=== PATIENT | male | born 1985 | race Caucasian/White ===

== ENCOUNTER 2022-07-16 12:08 | Inpatient (IN) | payer OTHER ==
[2022-07-16 14:39] VITALS: BMI 27.8
[2022-07-16] MEDS ORDERED: BISMUTH SUBSALICYLATE 524 MG/30 ML PO PRN (15:41)
[2022-07-16] MEDS ORDERED: hydrOXYzine PAMOATE 25 MG CAPSULE (FP) PO PRN (15:41)
[2022-07-16] MEDS ORDERED: IBUPROFEN 600 MG TABLET (FP) PO PRN (15:41)
[2022-07-16] MEDS ORDERED: MAGNESIUM HYDROX 2400MG/30ML ORAL SUSPENSION 30 ML CUP PO PRN (15:41)
[2022-07-16] MEDS ORDERED: NICOTINE 10 MG CARTRIDGE (INHALER) IH PRN (15:41)
[2022-07-16] MEDS ORDERED: BENZOCAINE/MENTHOL (CHLORASEPTIC ) LOZENGE MM PRN (15:41)
[2022-07-16] MEDS ORDERED: METHOCARBAMOL 500 MG TABLET PO PRN (15:41)
[2022-07-16] MEDS ORDERED: chlordiazePOXIDE HCL 25 MG CAPSULE PO PRN (15:41)
[2022-07-16] MEDS ORDERED: MAG HYDROX/AL HYDROX/SIMETH 30 ML UNIT-DOSE CUP PO PRN (15:41)
[2022-07-16] MEDS ORDERED: ACETAMINOPHEN 325 MG TABLET (FP) PO PRN ×2 (15:41)
[2022-07-16] MEDS ORDERED: DICYCLOMINE HCL 10 MG CAPSULE PO PRN (15:41)
[2022-07-16] MEDS ORDERED: MAGNESIUM CITRATE 300 ML BOTTLE PO PRN (15:41)
[2022-07-16] MEDS ORDERED: LOPERAMIDE HCL 2 MG CAPSULE PO PRN (15:41)
[2022-07-16] MEDS ORDERED: ONDANSETRON *ODT* 4 MG TABLET SL PRN (15:41)
[2022-07-16] MEDS ORDERED: IBUPROFEN 400 MG TABLET (FP) PO PRN (15:41)
[2022-07-16] MEDS ORDERED: chlordiazePOXIDE HCL 25 MG CAPSULE ONE ×2 (17:14→22:06)
[2022-07-16] MEDS: chlordiazePOXIDE HCL 25 MG CAPSULE PO SCH ×2 (17:18→22:06)
[2022-07-16] MEDS: THIAMINE HCL 100 MG TABLET (FP) PO SCH (22:06)
[2022-07-16] MEDS: MELATONIN 5 MG TABLETS PO SCH (22:06)
[2022-07-17] MEDS ORDERED: chlordiazePOXIDE HCL 25 MG CAPSULE ONE ×2 (05:33→11:11)
[2022-07-17] MEDS: chlordiazePOXIDE HCL 25 MG CAPSULE PO SCH ×4 (05:33→23:15)
[2022-07-17 11:46] LABS: HEMATOCRIT 44.1 % (35.4-49); HEMOGLOBIN 14.7 GM/dL (11.7-16.9); MCH 29.8 pg (25.7-33.7); MCHC 33.3 g/dl (32.0-35.9); MEAN CELL VOLUME 89.4 fl (80-96); MEAN PLT VOLUME 8.8 fl (7.5-11.1); PLATELET COUNT 295 10^3/uL (134-434); RBC 4.94 M/mm3 (4.00-5.60); RDW 14.4 % (11.9-15.9); WHITE BLOOD COUNT 4.9 K/mm3 (4.0-10.0)
[2022-07-17] MEDS: PRENATAL VITAMINS W/ FOLIC ACID TABLET (FP) PO SCH (11:55)
[2022-07-17 12:29] LABS: ALBUMIN 4.1 g/dl (3.4-5.0); BLOOD UREA NITROGEN 14.4 mg/dL (7-18); CALCIUM 9.5 mg/dL (8.5-10.1)
[2022-07-17 12:32] LABS: CREATININE 0.9 mg/dL (0.55-1.3)
[2022-07-17 12:33] LABS: BILIRUBIN,TOTAL 0.8 mg/dL (0.2-1)
[2022-07-17 12:34] LABS: TOT PROT 7.4 g/dl (6.4-8.2)
[2022-07-17] MEDS: levETIRAcetam XR 500 MG TAB PO SCH (12:49)
[2022-07-17] MEDS: THIAMINE HCL 100 MG TABLET (FP) PO SCH (23:15)
[2022-07-17] MEDS: MELATONIN 5 MG TABLETS PO SCH (23:15)
[2022-07-18] MEDS: chlordiazePOXIDE HCL 25 MG CAPSULE PO SCH ×4 (05:59→23:14)
[2022-07-18] MEDS: levETIRAcetam XR 500 MG TAB PO SCH (11:02)
[2022-07-18] MEDS: PRENATAL VITAMINS W/ FOLIC ACID TABLET (FP) PO SCH (11:02)
[2022-07-18] MEDS: MELATONIN 5 MG TABLETS PO SCH (23:14)
[2022-07-18] MEDS: THIAMINE HCL 100 MG TABLET (FP) PO SCH (23:14)
[2022-07-19] MEDS ORDERED: chlordiazePOXIDE HCL 10 MG CAPSULE PO PRN
[2022-07-19 06:42] VITALS: RESP 18
[2022-07-19] MEDS: chlordiazePOXIDE HCL 10 MG CAPSULE PO SCH ×2 (06:47→10:32)
[2022-07-19 10:26] VITALS: BP 133/81; PULSE 71; TEMP 96.9
[2022-07-19] MEDS: PRENATAL VITAMINS W/ FOLIC ACID TABLET (FP) PO SCH (10:31)
[2022-07-19] MEDS: levETIRAcetam XR 500 MG TAB PO SCH (10:31)
[2022-07-19] MEDS ORDERED: chlordiazePOXIDE 5 MG CAPSULE PO SCH (17:00)
[2022-07-20] MEDS ORDERED: chlordiazePOXIDE HCL 10 MG CAPSULE PO SCH (05:00)
[2022-07-21] MEDS ORDERED: chlordiazePOXIDE HCL 10 MG CAPSULE PO ONE (05:00)
== END 2022-07-19 11:44 | disposition left against medical advice (07) | DRG 770 ==
LOC: YASAS 12:08 → Y6N 07-17 10:44
PROVIDERS: ADMIT Allergy & Immunology; ATTEND Surgery
PROC: HZ2ZZZZ Detoxification Services for Substance Abuse Treatment (ICD-10-PCS; principal; 2022-07-17)
DX: F10.230 Alcohol dependence with withdrawal, uncomplicated (principal); F11.23 Opioid dependence with withdrawal; R56.9 Unspecified convulsions; Z28.310 Unvaccinated for COVID-19; Z28.9 Immunization not carried out for unspecified reason
CPT/HCPCS: 36415; 71046-TC-FY; 80053; 85027; 86780; 87811; 93005; 93010; C9803-CS; U0003; U0005